=== PATIENT | female | born 1975 | race Two or more races ===

== ENCOUNTER 2017-08-12 05:48 | Day surgery (SDC) | payer OTHER ==
[~2017-08-12 05:48] MED LIST: ADVAIR 100-501 EACH IH; ADVAIR HFA 230/12 GM IH; MULTI-DAY PLUS1 EAC1 PO; PROAIR HFA8.5 GM IH; TAMOXIFEN CITRA20 MG PO; VITAMIN D5000 UNIT PO; ZYRTEC10 M3 PO
== END 2017-08-12 12:10 | disposition home or self-care (01) ==
LOC: CIR.AMB 05:48
DX: Z90.13 Acquired absence of bilateral breasts and nipples (principal)

== ENCOUNTER 2017-09-10 11:25 | Outpatient (CLI) | payer OTHER | END 2017-09-10 17:00 | disposition home or self-care (01) | LOC: SONOGRAMA 11:25 | DX: N84.0 Polyp of corpus uteri (principal) ==

== ENCOUNTER 2017-11-21 09:23 | Outpatient (CLI) | payer OTHER | END 2017-11-21 14:33 | disposition home or self-care (01) | LOC: MRI 09:23 | DX: R19.03 Right lower quadrant abdominal swelling, mass and lump (principal) | CPT/HCPCS: 72196 ==

== ENCOUNTER 2017-12-31 15:38 | Outpatient (CLI) | payer OTHER | END 2017-12-31 15:54 | disposition home or self-care (01) | LOC: RAD 15:38 | DX: R05 Cough (principal) ==

== ENCOUNTER 2018-01-10 06:50 | Day surgery (SDC) | payer OTHER | END 2018-01-10 11:50 | disposition home or self-care (01) | LOC: CIR.AMB 06:50 | DX: N84.0 Polyp of corpus uteri (principal) ==

== ENCOUNTER 2018-01-23 10:23 | Outpatient (CLI) | payer OTHER | END 2018-01-23 12:06 | disposition home or self-care (01) | LOC: SONOGRAMA 10:23 | DX: N84.8 Polyp of other parts of female genital tract (principal) ==

== ENCOUNTER 2018-02-18 14:04 | Outpatient (CLI) | payer OTHER | END 2018-02-18 14:33 | disposition home or self-care (01) | LOC: NUCLEAR 14:04 | DX: M81.0 Age-related osteoporosis without current pathological fracture (principal); E55.0 Rickets, active ==

== ENCOUNTER 2018-08-25 08:59 | Outpatient (CLI) | payer OTHER | END 2018-08-25 15:29 | disposition home or self-care (01) | LOC: MAMO-SONO 08:59 | DX: N30.10 Interstitial cystitis (chronic) without hematuria (principal) ==

== ENCOUNTER 2019-03-30 09:24 | Outpatient (CLI) | payer OTHER | END 2019-03-30 09:27 | disposition home or self-care (01) | LOC: RAD 09:24 | DX: N80.1 Endometriosis of ovary (principal) ==